=== PATIENT | male | born 1945 | race Caucasian/White ===

== ENCOUNTER 2017-02-12 09:36 | Observation (INO) | payer MEDICARE, BC ==
[~2017-02-12] VITALS: Ht 182.9 cm; Wt 80.4 kg
[~2017-02-12 09:36] MED LIST: CHILD ASA LS81 MG PO; COREG6.25 MG PO; HYDROCHLOROT12.5 MG PO; LEVOTHYROXIN88 MC1 PO; LOSARTAN POT50 MG PO; SIMVASTATIN40 MG PO
[2017-02-12] MEDS ORDERED: NITROSTAT0.4 MG SL (09:52)
[2017-02-12] MEDS ORDERED: FUROSEMIDE40 MG PO (09:52)
[2017-02-12] MEDS ORDERED: LEVOTHYROXIN125 MCG PO (09:53)
[2017-02-12 10:36] LABS: HEMATOCRIT 46.3 % (39.0-50.0); HEMOGLOBIN 16.2 g/dl (14.0-18.0); IMMATURE GRANULOCYTES 0.4 % (0.0-1.0); MEAN CELL VOLUME 92.8 fL CALC (80.0-100.0); MEAN CORPUSCULAR HGB 32.5 pG CALC (26.0-32.0); NEUT# 4.53 thou/uL (1.82-7.42); RED BLOOD COUNT 4.99 mill/uL (4.70-6.10); RED CELL DISTRI WIDTH 12.1 % (11.5-15.5)
[2017-02-12 10:51] LABS: PROTHROMBIN TIME 11.3 SECONDS (9.0-12.5)
[2017-02-12 10:52] LABS: ALBUMIN 4.4 g/dL (3.2-5.0); ALKALINE PHOSPHATASE 112 u/l (38-126); ANION GAP 17 (6-22 (CALC)); BILIRUBIN, TOTAL 0.7 mg/dL (0.0-1.4); BUN 20 mg/dL (8-23); BUN/CREATININE RATIO 14 (12-20 (CALC)); CALCIUM 9.9 mg/dL (8.4-10.2); CARBON DIOXIDE 26 mmol/l (22-30); CHLORIDE 104 mmol/l (95-108); CREATININE 1.4 mg/dL (0.7-1.3); GFR 50 ML/MIN (>=60 (CALC)); GFR FOR AFR.AMER. 60 ML/MIN (>=60 (CALC)); GLUCOSE 92 mg/dL (82-115); POTASSIUM 3.9 mmol/l (3.5-5.1); SGOT/AST 27 u/l (19-48); SGPT/ALT 21 u/l (11-66); SODIUM 143 mmol/l (137-146); TOTAL PROTEIN 7.8 g/dL (6.3-8.2)
[2017-02-12 11:05] LABS: MYOGLOBIN 67 ng/mL (0 - 121)
[2017-02-12 11:08] LABS: URINE BILIRUBIN - DIPSTICK NEGATIVE (NEGATIVE); URINE BLOOD DIPSTICK TRACE-INTACT (NEGATIVE); URINE CLARITY CLEAR; URINE COLOR YELLOW; URINE GLUCOSE - DIPSTICK NEGATIVE (NEGATIVE); URINE KETONE NEGATIVE (NEGATIVE); URINE LEUK ESTERASE NEGATIVE (NEGATIVE); URINE NITRITE - DIPSTICK NEGATIVE (Negative); URINE PH 5.5 (4.5-8.0); URINE PROTEIN - DIPSTICK NEGATIVE (NEG-TRACE); URINE SPECIFIC GRAVITY 1.025; URINE UROBILINOGEN - DIPSTICK 0.2 E.U./dL (0.2)
[2017-02-12 13:17] VITALS: BP 155/97
[2017-02-12] MEDS ORDERED: ENALAPRIL5 MG PO (15:56)
[2017-02-12 16:00] VITALS: BP 137/87; BP 147/95
[2017-02-12 17:45] VITALS: BP 139/92; BP 145/92
[2017-02-12 20:15] VITALS: BP 137/81
[2017-02-13 00:35] VITALS: BP 119/68
[2017-02-13 04:00] VITALS: BP 126/78
[2017-02-13 06:11] LABS: ANION GAP 13 (6-22 (CALC)); BUN 18 mg/dL (8-23); BUN/CREATININE RATIO 14 (12-20 (CALC)); CALCIUM 9.7 mg/dL (8.4-10.2); CARBON DIOXIDE 29 mmol/l (22-30); CHLORIDE 104 mmol/l (95-108); CREATININE 1.2 mg/dL (0.7-1.3); GFR 60 ML/MIN (>=60 (CALC)); GFR FOR AFR.AMER. > 60 ML/MIN (>=60 (CALC)); GLUCOSE 93 mg/dL (82-115); POTASSIUM 4.8 mmol/l (3.5-5.1); SODIUM 141 mmol/l (137-146)
[2017-02-13 07:31] VITALS: BP 130/82
[2017-02-13 12:30] VITALS: BP 136/79
== END 2017-02-13 14:26 | disposition home or self-care (01) ==
LOC: ENPENDDIS → ED 09:36 → ED-I 12:24 → ED 12:38 → MS2 12:39
PROVIDERS: Emergency Medicine; ADMIT Internal Medicine; ATTEND Internal Medicine
DX: R55 Syncope and collapse (principal); I13.0 Hypertensive heart and chronic kidney disease with heart failure and stage 1 through stage 4 chronic kidney disease, or unspecified chronic kidney disease; I50.22 Chronic systolic (congestive) heart failure; N18.3 Chronic kidney disease, stage 3 (moderate); I25.118 Atherosclerotic heart disease of native coronary artery with other forms of angina pectoris; I25.5 Ischemic cardiomyopathy; E03.9 Hypothyroidism, unspecified; E78.5 Hyperlipidemia, unspecified; I25.2 Old myocardial infarction; Z95.810 Presence of automatic (implantable) cardiac defibrillator; Z95.5 Presence of coronary angioplasty implant and graft; R42 Dizziness and giddiness; R53.1 Weakness; R94.31 Abnormal electrocardiogram [ECG] [EKG]

== ENCOUNTER 2017-08-25 07:57 | Emergency (ER) | payer MEDICARE, BC ==
[~2017-08-25] VITALS: Ht 182.9 cm; Wt 80.0 kg
[~2017-08-25 07:57] MED LIST changes: +ENALAPRIL5 MG PO; +FUROSEMIDE40 MG PO; +LEVOTHYROXIN125 MCG PO; +NITROSTAT0.4 MG SL
[2017-08-25 08:17] LABS: HEMATOCRIT 45.9 % (39.0-50.0); HEMOGLOBIN 15.9 g/dl (14.0-18.0); IMMATURE GRANULOCYTES 0.6 % (0.0-1.0); MEAN CELL VOLUME 93.7 fL CALC (80.0-100.0); MEAN CORPUSCULAR HGB 32.4 pG CALC (26.0-32.0); MEAN CORPUSCULAR HGB CONC 34.6 g/L CALC (32.0-36.0); NEUT# 8.09 thou/uL (1.82-7.42); RED BLOOD COUNT 4.9 mill/uL (4.70-6.10); RED CELL DISTRI WIDTH 12.5 % (11.5-15.5)
[2017-08-25 08:36] LABS: ALKALINE PHOSPHATASE 102 u/l (38-126); ANION GAP 14 (6-22 (CALC)); BILIRUBIN, TOTAL 0.9 mg/dL (0.0-1.4); BUN 19 mg/dL (8-23); BUN/CREATININE RATIO 14 (12-20 (CALC)); CALCIUM 9.7 mg/dL (8.4-10.2); CARBON DIOXIDE 26 mmol/l (22-30); CHLORIDE 108 mmol/l (95-108); CREATININE 1.3 mg/dL (0.7-1.3); GFR 54 ML/MIN (>=60 (CALC)); GFR FOR AFR.AMER. > 60 ML/MIN (>=60 (CALC)); GLUCOSE 170 mg/dL (82-115); SGOT/AST 27 u/l (19-48); SGPT/ALT 25 u/l (11-66); SODIUM 144 mmol/l (137-146)
[2017-08-25 08:48] LABS: MYOGLOBIN 75 ng/mL (0 - 121)
[2017-08-25 09:50] VITALS: BP 139/77
[2017-08-25] MEDS ORDERED: XANAX0.25 MG PO (10:05)
== END 2017-08-25 09:55 | disposition left against medical advice (07) ==
LOC: ED 07:57
PROVIDERS: Emergency Medicine
DX: R07.9 Chest pain, unspecified (principal); R42 Dizziness and giddiness; I25.10 Atherosclerotic heart disease of native coronary artery without angina pectoris; I11.0 Hypertensive heart disease with heart failure; I50.9 Heart failure, unspecified; Z95.810 Presence of automatic (implantable) cardiac defibrillator; Z95.5 Presence of coronary angioplasty implant and graft; Z91.19 Patient's noncompliance with other medical treatment and regimen